=== PATIENT | male | born 1980 | race Caucasian/White ===

== ENCOUNTER 2022-03-15 11:44 | Outpatient (NON) | payer OTHER, SELFPAY ==
[2022-03-15 12:39] LABS: Alanine Aminotransferase 76 U/L (6-50); Albumin Level 3.6 g/dL (3.5-5.1); Alkaline Phosphatase 98 U/L (38-126); Anion Gap 11 mmol/L (8-16); Aspartate Amino Transferase 44 U/L (17-59); Bilirubin,Total 0.2 mg/dL (0.2-1.3); Blood Urea Nitrogen 11 mg/dL (9-20); CRP 0.7 mg/dL (<1.0); Calcium 8.3 mg/dL (8.4-10.2); Carbon Dioxide 27 mmol/L (22-30); Chloride 102 mmol/L (98-107); Estimated Glomerular Filt Rate > 60; Glucose 84 mg/dL (65-110); Potassium 3.9 mmol/L (3.4-5.0); Sodium 140 mmol/L (137-145)
[2022-03-15 12:41] LABS: Hematocrit 28.2 % (42.0-52.0); Mean Corpuscular HGB Conc 31.9 g/dl (32-36); Mean Corpuscular Hemoglobin 28.7 pg (26-34); Mean Corpuscular Volume 89.8 fl (80-100); Mean Platelet Volume 9.5 fl (7.4-10.4); Platelet Count Result 238 k/mm3 (150-375); Red Blood Count 3.14 M/mm3 (4.6-6.20); Red Cell Distribution Width 15.9 % (11.5-14.5); White Blood Count 4.4 K/mm3 (4.5-10.0)
[2022-03-15 13:09] LABS: Erythrocyte Sedimentation Rate 44 mm/hr (0-20)
== END 2022-03-15 11:45 | disposition home or self-care (01) ==
DX: L03.90 Cellulitis, unspecified (principal); A41.9 Sepsis, unspecified organism
CPT/HCPCS: 80053; 85027; 85652; 86140

== ENCOUNTER 2022-03-22 12:49 | Outpatient (NON) | payer OTHER, SELFPAY ==
[2022-03-22 13:13] LABS: Basophils Percent Auto 0.3 % (0.2-1.2); Eosinophils Absolute Auto 0.1 K/mm3 (0-0.3); Eosinophils Percent Auto 3.1 % (0-4.4); Hematocrit 33.7 % (42.0-52.0); Hemoglobin 10.5 g/dL (14.0-18.0); Immature Granulocyte Absolute 0.01 K/mm3 (0.00-0.031); Immature Granulocyte Percent A 0.3 % (0-0.5); Lymphocytes Absolute Auto 0.82 K/mm3 (0.9-3.2); Lymphocytes Percent Auto 28.6 % (18.3-44.2); Mean Corpuscular HGB Conc 31.2 g/dl (32-36); Mean Corpuscular Volume 89.9 fl (80-100); Mean Platelet Volume 9.8 fl (7.4-10.4); Monocytes Absolute Auto 0.4 K/mm3 (0.1-0.6); Monocytes Percent Auto 14.6 % (2.6-8.5); Neutrophils Absolute Auto 1.5 K/mm3 (1.3-6.7); Neutrophils Percent Auto 53.1 % (45.5-73.1); Platelet Count Result 219 k/mm3 (150-375); Red Blood Count 3.75 M/mm3 (4.6-6.20); Red Cell Distribution Width 14.7 % (11.5-14.5); White Blood Count 2.9 K/mm3 (4.5-10.0)
[2022-03-22 13:16] LABS: Alanine Aminotransferase 18 U/L (6-50); Albumin Level 3.8 g/dL (3.5-5.1); Alkaline Phosphatase 76 U/L (38-126); Anion Gap 8 mmol/L (8-16); Aspartate Amino Transferase 25 U/L (17-59); Bilirubin,Total 0.3 mg/dL (0.2-1.3); Blood Urea Nitrogen 10 mg/dL (9-20); CRP < 0.5 mg/dL (<1.0); Calcium 8.7 mg/dL (8.4-10.2); Carbon Dioxide 29 mmol/L (22-30); Chloride 101 mmol/L (98-107); Estimated Glomerular Filt Rate > 60; Glucose 85 mg/dL (65-110); Potassium 3.7 mmol/L (3.4-5.0); Sodium 138 mmol/L (137-145)
[2022-03-22 13:47] LABS: Erythrocyte Sedimentation Rate 16 mm/hr (0-20)
== END 2022-03-22 12:50 | disposition home or self-care (01) ==
LOC: HOME HLTH 12:59
DX: L03.90 Cellulitis, unspecified (principal); A41.9 Sepsis, unspecified organism
CPT/HCPCS: 80053; 85025; 85652; 86140

== ENCOUNTER 2022-03-25 13:44 | Outpatient (NON) | payer OTHER, SELFPAY ==
[2022-03-25 18:49] LABS: Eosinophils Absolute Auto 0.1 K/mm3 (0-0.3); Eosinophils Percent Auto 4.2 % (0-4.4); Hematocrit 37.3 % (42.0-52.0); Hemoglobin 11.7 g/dL (14.0-18.0); Lymphocytes Absolute Auto 0.71 K/mm3 (0.9-3.2); Lymphocytes Percent Auto 29.7 % (18.3-44.2); Mean Corpuscular HGB Conc 31.4 g/dl (32-36); Mean Corpuscular Hemoglobin 28.3 pg (26-34); Mean Corpuscular Volume 90.1 fl (80-100); Mean Platelet Volume 9.8 fl (7.4-10.4); Monocytes Absolute Auto 0.4 K/mm3 (0.1-0.6); Monocytes Percent Auto 15.9 % (2.6-8.5); Neutrophils Absolute Auto 1.2 K/mm3 (1.3-6.7); Neutrophils Percent Auto 50.2 % (45.5-73.1); Platelet Count Result 186 k/mm3 (150-375); Red Blood Count 4.14 M/mm3 (4.6-6.20); Red Cell Distribution Width 14.1 % (11.5-14.5); White Blood Count 2.4 K/mm3 (4.5-10.0)
== END 2022-03-25 13:45 | disposition home or self-care (01) ==
LOC: HOME HLTH 13:46
PROVIDERS: Visit Provider Orthopaedic Surgery
DX: L89.610 Pressure ulcer of right heel, unstageable (principal); Z45.2 Encounter for adjustment and management of vascular access device; Z79.2 Long term (current) use of antibiotics; T84.625A Infection and inflammatory reaction due to internal fixation device of left fibula, initial encounter
CPT/HCPCS: 85025

== ENCOUNTER 2022-04-12 12:27 | Outpatient (RCR) | payer OTHER, SELFPAY ==
[2022-03-30 10:29] LABS: Basophils Percent Auto 0.3 % (0.2-1.2); Eosinophils Absolute Auto 0.1 K/mm3 (0-0.3); Eosinophils Percent Auto 2.5 % (0-4.4); Immature Granulocyte Absolute 0.01 K/mm3 (0.00-0.031); Immature Granulocyte Percent A 0.3 % (0-0.5); Lymphocytes Percent Auto 49.1 % (18.3-44.2); Mean Corpuscular HGB Conc 32.5 g/dl (32-36); Mean Corpuscular Hemoglobin 27.7 pg (26-34); Mean Corpuscular Volume 85.1 fl (80-100); Mean Platelet Volume 10.2 fl (7.4-10.4); Monocytes Absolute Auto 0.3 K/mm3 (0.1-0.6); Monocytes Percent Auto 9.5 % (2.6-8.5); Neutrophils Absolute Auto 1.3 K/mm3 (1.3-6.7); Neutrophils Percent Auto 38.3 % (45.5-73.1); Platelet Count Result 188 k/mm3 (150-375); Red Cell Distribution Width 13.4 % (11.5-14.5); White Blood Count 3.3 K/mm3 (4.5-10.0)
[2022-03-30 10:46] LABS: Alanine Aminotransferase 42 U/L (6-50); Albumin Level 4.3 g/dL (3.5-5.1); Alkaline Phosphatase 90 U/L (38-126); Anion Gap 9 mmol/L (8-16); Aspartate Amino Transferase 42 U/L (17-59); Bilirubin,Total 0.4 mg/dL (0.2-1.3); Blood Urea Nitrogen 9 mg/dL (9-20); CRP < 0.5 mg/dL (<1.0); Carbon Dioxide 28 mmol/L (22-30); Chloride 102 mmol/L (98-107); Estimated Glomerular Filt Rate > 60; Glucose 85 mg/dL (65-110); Potassium 4.1 mmol/L (3.4-5.0); Sodium 139 mmol/L (137-145)
[2022-03-30 11:13] LABS: Erythrocyte Sedimentation Rate 12 mm/hr (0-20)
[2022-03-31 15:06] LABS: Vancomycin Trough 7.8 ug/mL (10.0-20.0)
[2022-04-05 12:47] LABS: Alanine Aminotransferase 28 U/L (6-50); Albumin Level 3.9 g/dL (3.5-5.1); Alkaline Phosphatase 89 U/L (38-126); Anion Gap 7 mmol/L (8-16); Aspartate Amino Transferase 31 U/L (17-59); Bilirubin,Total 0.2 mg/dL (0.2-1.3); Blood Urea Nitrogen 11 mg/dL (9-20); CRP < 0.5 mg/dL (<1.0); Calcium 8.5 mg/dL (8.4-10.2); Carbon Dioxide 26 mmol/L (22-30); Chloride 103 mmol/L (98-107); Estimated Glomerular Filt Rate > 60; Glucose 72 mg/dL (65-110); Potassium 3.9 mmol/L (3.4-5.0); Sodium 136 mmol/L (137-145)
[2022-04-05 12:49] LABS: Vancomycin Trough 10.2 ug/mL (10.0-20.0)
[2022-04-05 12:52] LABS: Basophils Percent Auto 0.5 % (0.2-1.2); Eosinophils Absolute Auto 0.1 K/mm3 (0-0.3); Eosinophils Percent Auto 3.2 % (0-4.4); Hematocrit 39.9 % (42.0-52.0); Hemoglobin 12.6 g/dL (14.0-18.0); Immature Granulocyte Absolute 0.01 K/mm3 (0.00-0.031); Immature Granulocyte Percent A 0.2 % (0-0.5); Lymphocytes Absolute Auto 1.26 K/mm3 (0.9-3.2); Mean Corpuscular HGB Conc 31.6 g/dl (32-36); Mean Corpuscular Hemoglobin 27.9 pg (26-34); Mean Corpuscular Volume 88.5 fl (80-100); Mean Platelet Volume 10.3 fl (7.4-10.4); Monocytes Absolute Auto 0.4 K/mm3 (0.1-0.6); Monocytes Percent Auto 10.3 % (2.6-8.5); Neutrophils Absolute Auto 2.2 K/mm3 (1.3-6.7); Neutrophils Percent Auto 54.8 % (45.5-73.1); Platelet Count Result 168 k/mm3 (150-375); Red Blood Count 4.51 M/mm3 (4.6-6.20); Red Cell Distribution Width 13.2 % (11.5-14.5); White Blood Count 4.1 K/mm3 (4.5-10.0)
[2022-04-05 13:41] LABS: Erythrocyte Sedimentation Rate 2 mm/hr (0-20)
[2022-04-12 13:59] LABS: Alanine Aminotransferase 26 U/L (6-50); Albumin Level 4.2 g/dL (3.5-5.1); Alkaline Phosphatase 81 U/L (38-126); Anion Gap 10 mmol/L (8-16); Aspartate Amino Transferase 31 U/L (17-59); Bilirubin,Total 0.3 mg/dL (0.2-1.3); Blood Urea Nitrogen 9 mg/dL (9-20); CRP < 0.5 mg/dL (<1.0); Carbon Dioxide 27 mmol/L (22-30); Chloride 102 mmol/L (98-107); Estimated Glomerular Filt Rate > 60; Glucose 112 mg/dL (65-110); Potassium 3.5 mmol/L (3.4-5.0); Sodium 139 mmol/L (137-145)
[2022-04-12 14:07] LABS: Basophils Percent Auto 0.4 % (0.2-1.2); Eosinophils Absolute Auto 0.1 K/mm3 (0-0.3); Eosinophils Percent Auto 2.8 % (0-4.4); Hematocrit 41.8 % (42.0-52.0); Hemoglobin 13.6 g/dL (14.0-18.0); Lymphocytes Absolute Auto 1.32 K/mm3 (0.9-3.2); Lymphocytes Percent Auto 28.1 % (18.3-44.2); Mean Corpuscular HGB Conc 32.5 g/dl (32-36); Mean Corpuscular Hemoglobin 27.6 pg (26-34); Mean Corpuscular Volume 84.8 fl (80-100); Monocytes Absolute Auto 0.4 K/mm3 (0.1-0.6); Monocytes Percent Auto 8.1 % (2.6-8.5); Neutrophils Absolute Auto 2.8 K/mm3 (1.3-6.7); Neutrophils Percent Auto 60.6 % (45.5-73.1); Platelet Count Result 184 k/mm3 (150-375); Red Blood Count 4.93 M/mm3 (4.6-6.20); Red Cell Distribution Width 13.1 % (11.5-14.5); White Blood Count 4.7 K/mm3 (4.5-10.0)
[2022-04-12 14:19] LABS: Vancomycin Trough 11.4 ug/mL (10.0-20.0)
[2022-04-12 14:37] LABS: Erythrocyte Sedimentation Rate 2 mm/hr (0-20)
== END 2022-06-28 23:59 | disposition home or self-care (01) ==
LOC: HOME HLTH 12:27
DX: L03.90 Cellulitis, unspecified (principal); A41.9 Sepsis, unspecified organism
CPT/HCPCS: 80053; 80202; 85025; 85652; 86140

== ENCOUNTER 2022-06-30 08:00 | Outpatient (NON) | payer OTHER, SELFPAY | END 2022-06-30 08:01 | disposition home or self-care (01) | LOC: ANHLAB 07-01 12:02 | PROVIDERS: Visit Provider Nurse Practitioner | DX: D22.5 Melanocytic nevi of trunk (principal) | CPT/HCPCS: 88305 ==

== ENCOUNTER 2022-08-29 09:00 | Outpatient (NON) | payer OTHER, SELFPAY | END 2022-08-29 09:01 | disposition home or self-care (01) | LOC: ANHLAB 08-31 11:43 | PROVIDERS: PCP Physician Assistant; Visit Provider Nurse Practitioner | DX: D22.5 Melanocytic nevi of trunk (principal) | CPT/HCPCS: 88305 ==

== ENCOUNTER 2022-09-14 01:47 | Day surgery (SDC) | payer OTHER, SELFPAY ==
--- NOTE | 2022-09-12 11:24 | PC.NURSE ---
patient verbalizes understanding of IRC procedure arrival date and times. No prep needed for this procedure. Medication reconciliation and allergy list updated in EMR.
[2022-09-14 11:35] VITALS: BP 134/68; PULSE 71; RESP 18; TEMP 36.5; O2SAT 100
--- NOTE | 2022-09-14 11:44 | PM.HPGS ---
History of Present Illness History of Present Illness Consent: Risks, benefits, and alternatives have been discussed and questions answered. Patient agrees to proceed with procedure. Chief complaint: hemorrhoids Narrative: Constantino Chavarria is a 41 year old male with hemorrhoids, here for [facility] Review of Systems Constitutional: Constitutional: Denies headache(s) and Denies weakness Eyes: Eyes: Denies blurry vision ENT: Reports Normal hearing present, Denies headache(s) and Denies neck pain Cardiovascular: Cardiovascular: Denies chest pain and Denies dyspnea Respiratory: Respiratory: Denies dyspnea Gastrointestinal: Gastrointestinal: Reports no additional gastrointestinal complaints Genitourinary: Genitourinary: Denies dysuria Musculoskeletal: Musculoskeletal: Denies neck pain Integumentary/Breasts: Skin/Breast: Denies dry skin Neurologic: Reports Normal hearing present, Denies headache(s) and Denies weakness Psychiatric: Psychiatric: Denies anxiety Endocrine: Endocrine: Denies change in body appearance Hematologic/Lymphatic: Hematologic/Lymphatic: Denies easy bleeding Allergic/Immunologic: Allergic/Immunologic: Denies urticaria PMFSH Past Medical History Medical History (Updated 08/11/22 @ 09:28 by Kit Franklin MD) Closed head injury Closed rib fracture Hemorrhoid Open right ankle fracture Right radial fracture Scalp laceration Traumatic fracture of ribs of left side with pneumothorax Social History Social History Smoking status: Never smoker Alcohol intake: current Alcohol use details: social Substance use: never Meds Home Medications and Allergies Home Medications Medication Instructions Recorded Confirmed Type docusate sodium 100 mg capsule 200 mg PO Q12HR #60 caps 11/25/21 09/14/22 Rx sennosides 8.6 mg tablet (Senokot) 17.2 mg PO DAILY #30 tabs 11/25/21 09/14/22 Rx Adults Multivitamin 1 tab-cap PO DAILY 09/12/22 09/14/22 History B Complex 1 tab-cap BYMOUTH DAILY 09/12/22 09/14/22 History Vitamin D3 1 tab-cap PO DAILY 09/12/22 09/14/22 History doxycycline hyclate 100 mg tablet 100 mg PO BID 09/12/22 09/14/22 History Allergies Allergy/AdvReac Type Severity Reaction Status Date / Time Sulfa (Sulfonamide Allergy Intermediate Hives Verified 09/14/22 11:43 Antibiotics) Exam Const: General: comfortable and no acute distress HENMT: Face/Nose/Sinus: Normal nares present Eyes: General: appearance normal, both eyes and all related structures Neck: Neck: no JVD Resp: Auscultation: clear to auscultation bilaterally Cardio: Rate: regular rate Rhythm: regular rhythm GI: Inspection: non-distended GI Palp: Yes Soft to palpation Skin: General skin exam: normal color Neuro: General: patient oriented x3 Speech: normal speech Extrem: General: normal to inspection Psych: Mental Status: mental status grossly normal Assessment and Plan Assessment and plan (1) Hemorrhoid: Code(s): K64.9 - Unspecified hemorrhoids Status: Acute Assessment and Plan: irc of internal hemorrhoids
--- NOTE | 2022-09-14 11:45 | W.PM.PROC2 ---
Procedure Note - Detailed Date of Procedure 09/14/22 Pre-op Diagnosis hemorrhoids Post-op Diagnosis Same Procedure Performed irc of internal hemorrhoids Surgeon Kit Franklin MD Anesthesia None Description of Procedure no anal fissure, no bleeding. Used anoscope and found small size internal hemorrhoids. Treated using irc probe at 1.5 sec x5
== END 2022-09-14 11:53 | disposition home or self-care (01) ==
PROVIDERS: PCP Physician Assistant; Visit Provider Internal Medicine Gastroenterology
PROC: (CPT 46930; principal; 2022-09-14 11:45)
DX: K64.8 Other hemorrhoids (principal)
CPT/HCPCS: 46930

== ENCOUNTER 2025-04-15 12:46 | Emergency (ER) | payer OTHER, SELFPAY ==
[2025-04-15 13:00] VITALS: BP 112/74; PULSE 76; RESP 16; TEMP 36.6; O2SAT 99
[2025-04-15 13:17] LABS: EDCOVIDSCREEN Negative (Negative); EDINFLUASCREEN Negative (Negative); EDINFLUBSCREEN Negative (Negative)
--- OUTSIDE RECORDS SUMMARY | 2025-04-15 13:28 | XMS_ITS | Clinical Summary ---
Author Organization [facility] Address [address] [place] [address] Care Team Providers Care Automobile Sales Representative Name Role Phone Florecita Mchugh Primary Care Pr ovider Allergies Active Allergy Reactions Criticality Noted Date Comments Sulfa (Sulfonamide Antibiotics) Hives Medium 03/15 Medications varenicline (CHANTIX ZOILA) 0.5 mg (11)- 1 mg (42) tablet Take by mouth 2 (two) times a day. Take 0.5 mg one daily on days 1-2 and 0.5 mg twice daily on days 4-7. Then 1 mg twice daily for a total of 12 weeks. Active prednisoLONE ODT (ORAPRED ODT) 10 mg disintegrating tablet Take by mouth daily. Active cyclobenzaprine (FLEXERIL) 10 mg tablet Take 1 tablet (10 mg total) by mouth daily Active traMADol (ULTRAM) 50 mg tablet Take 50 mg by mouth every 6 (six) hours as needed for pain. Active clindamycin (CLEOCIN T) 1 % lotion Apply topically as needed. Active azelastine (ASTELIN) 137 mcg (0.1 %) nasal spray Administer 1 spray into affected nostril(s) 2 times daily Active albuterol HFA (PROVENTIL HFA,VENTOLIN HFA,PROAIR HFA) 90 mcg/actuation inhalerIndications :Viral upper respiratory tract infection Inhale 2 puffs every 6 (six) hours as needed for wheezing or shortness of breath 1 Inhaler 05/23/19 20 Active Additional Information Patient not taking.Reported on 06/24/2019 benzonatate (TESSALON) 200 mg capsuleIndications :Viral upper respiratory tract infection Take 1 capsule (200 mg total) by mouth 3 (three) times a day as needed for cough 30 capsule 05/23/19 20 Active Additional Information Patient not taking.Reported on 06/24/2019 fluticasone propionate (FLONASE) 50 mcg/actuation nasal spray every 12 hours Act jerry tadalafiL (CIALIS) 20 mg tablet Take 1 tablet (20 mg total) by mouth daily as needed for erectile dysfunction 12 tablet 2 04/03/20 20 Active acetaminophen (TYLENOL) 500 mg tablet Take 2 tablets (1,000 mg total) by mouth every 8 (eight) hours 07/23/19 23 Active amitriptyline (ELAVIL) 25 mg tablet Take 1 tablet (25 mg total) by mouth nightly 03/21/20 22 Active montelukast (SINGULAIR) 10 mg tablet daily Active senna-docusate (PERICOLACE) 8.6-50 mg Take 1 tablet by mouth 2 (two) times a day 03/21/20 22 Active Active Problems No known active problems Surgical History Surgery Date Site/Laterality Comments TONSILLECTOMY/ADENOIDECTOMY 05/15/1992 - 05/14/1993 OTHER SURGICAL HISTORY PORT PLACEMENT CHEST >5 YEARS 02/24/2022 N/A Medical History Medical History Date Comments Varicella Urinary tract infection Family History Medical History Relation Name Comments Arthritis Father Cancer Father Arthritis Mother Diabetes Mother Relation Name Status Comments Father Mother Alive Social History Tobacco Use Types Packs/Day Years Used Date Smoking Tobacco: Former Smokeless Tobacco: Never Tobacco Cessation:Counseling Given: Not Answered Comments:quit 4 weeks ago Alcohol Use Standard Drinks/Week Comments Yes 0 (1 standard drink = 0.6 oz pur e alcohol) Personal Safety Answer Date Recorded Getting School Help Needed Not on file 04/27 Sex and Gender Information Value Date Recorded Sex Assigned at Not on file Legal Sex Male 11:36 PM [employer] Gender Identity Not on file Sexual Orientation Not on file 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 Not on file Not on file Last Filed Vital Signs Vital Sign Reading Time Taken Comments Blood Pressure 120/79 04/27/2023 6:55 PM [employer] Pulse 108 04/27/2023 6:55 PM SERVER CASHIER Temperature 36.8 C (98.3 F) 04/27/2023 6:55 PM SERVER CASHIER Respiratory Rate 16 04/27/2023 6:55 PM SERVER CASHIER Oxygen Saturation 100% 04/27/2023 6:55 PM SERVER CASHIER Inhaled Oxygen Concentration - - Weight 88.3 kg (194 lb 9.6 oz) 04/27/2023 6:55 P M SERVER CASHIER Height 182.9 cm (6' 0.01) 04/27/2023 6:55 PM CS T Body Mass Index 26.39 04/27/2023 6:55 PM SERVER CASHIER Plan of Treatment Health Maintenance Due Date Last Done Comments Depression Screening 1982 Hepatitis C Screening 1982 Hepatitis B Screening 2000 Regular Well Visit/Exam 18-64 2000 HPV Vaccines (1 - 3-dose SCDM series) 2009 Covid-19 Vaccine ( - season) 2025 05/19/2021, 04/28/2021 Influenza Vaccine (#1) 2025 2, 03/21/2022, 03/20/2020, Additional history exists DTaP/Tdap/Td Vaccine (3 - Td or Tdap) 11/14/2031 11/13/2021, 09/14/2018 Pneumococcal vaccine <65 Aged Out No longer eligible based on patient's age to complete this topic Insurance [facility] Address: [facility] [address] [place] [address] [facility] Address: [address] [address] [place] [address] [address] [place] [id number] [facility] Address: [address] [address] [place] [address] [address] [place] [place] [place] [id number] [facility] Address: [address] [address] [place] [address] Care Teams Automobile Sales Representative Relationship Specialty Start Date End Date Florecita Mchugh PA PCP - General Physician Psychotherapist Social Worker 04/27/23
--- OUTSIDE RECORDS SUMMARY | 2025-04-15 13:28 | XMS_ITS | Clinical Summary ---
Author Organization [facility] Address [address] [place] [address] Care Team Providers Care Hair Rooting Machine Operator Name Role Phone Bobby Ortiz MD Primary Care Provider Social History Tobacco Use Types Packs/Day Years Used Date Smoking Tobacco: Never Assessed Sex and Gender Information Value Date Recorded Sex Assigned at Not on file Legal Sex Male 5:57 AM [facility] Gender Identity Not on file Sexual Orientation Not on file Plan of Treatment Health Maintenance Due Date Last Done Comments DTAP/TDAP/TD VACCINES (1 - Tdap) 2001 HEPATITIS B VACCINES (1 of 3 - 19+ 3-dose series) 09/12 HPV VACCINES (1 - 3-dose SCDM series) 2009 INFLUENZA VACCINE (#1) 2024 Care Teams Hair Rooting Machine Operator Relationship Specialty Start Date End Date Bobby Ortiz MD PCP - General Otolaryngology 07/26/12
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
--- OUTSIDE RECORDS SUMMARY | 2025-04-15 13:31 | XMS_ITS | Encounter Summary ---
Author Organization [facility] Health Address [address] [place] [address] Care Team Providers Care Staff Auditor Name Role Phone Florecita Sanchez Primary Care Pr ovider Encounter Details Date Type Department Care Team (Late st Contact Info) Description 08/02/2022 Telephone [facility] [address] [place] [address] Lidia Mckeon MD [address] [place] [address] Social History Tobacco Use Types Packs/Day Years Used Date Smoking Tobacco: Former Cigarettes 0.3 10 Smokeless Tobacco: Never Alcohol Use Standard Drinks/Week Comments Not Currently 0 (1 standard drink = 0.6 oz pur e alcohol) AUDIT-C Answer Date Recorded Q1: How often do you have a drink containing alc ohol? Never 02/16/2022 Average Number of Drinks Not on file 022 Frequency of Binge Drinking Not on file 09/2021 PHQ-2 Answer Date Recorded PHQ2 TOTAL SCORE 0 06/01/2022 Hunger Vital Sign Answer Date Recorded Within [...] on file Legal Sex Male 4:23 AM COMPLIANCE ENG[employer] Gender Identity Not on file Sexual Orientation Not on file documented as of this encounter Functional Status * Is person deaf or have serious hearing difficulty? Answer Date of Assessment Author No 02/17/2022 2:36 PM CDT Jada Schmitt RN * Is person blind or have serious difficulty seeing? Answer Date of Assessment Author No 02/17/2022 2:36 PM CDT Jada Schmitt RN * Does person have serious difficulty walking/climbing stairs? Answer Date of Assessment Author Yes 02/17/2022 2:36 PM CDT Jada Schmitt RN * Does person have difficulty dressing/bathing? Answer Date of Assessment Author Yes 02/17/2022 2:36 PM CDT Jada Schmitt RN * Does person have difficulty doing errands alone? Answer Date of Assessment Author Yes 02/17/2022 2:36 PM CDT Jada Schmitt RN documented as of this encounter Mental Status * Does person have difficulty concentrating/remembering/making decisions? Answer Entry Date Author No 02/17/2022 2:36 PM CDT Jada Schmitt RN documented in this encounter Miscellaneous Notes * Telephone Encounter - Viridiana Owusu - 08/02/2022 3:35 PM CDT Current Provider name: Dr. Lidia Mckeon Reason for call: Mrs. Oc Chavarria called stating Mr. Constantino Chavarria is running temperature of 101,he is vomiting and he is really cold. Please give her a call GRECIA. His appt w you is 08/17/2022 Patient Call Back number: [phone] documented in this encounter Plan of Treatment Not on file documented as of this encounter Visit Diagnoses Not on filedocumented in this encounter Additional Health Concerns Infection Onset Date Last Indicated Resolved Time COVID-19 Under Investigation 08/02/2022 08/02/2022 08/02/2022 8:16 PM CDT documented as of this encounter Care Teams Staff Auditor Relationship Specialty Start Date End Date Florecita Sanchez PA [address] [place] [address] PCP - General Physician Health Information Administrator 02/16/22 documented as of this encounter
--- OUTSIDE RECORDS SUMMARY | 2025-04-15 13:31 | XMS_ITS | Encounter Summary ---
Author Organization [facility] Address [address] [place] [address] Care Team Providers Care Car And Yard Supervisor Name Role Phone Florecita Sanchez Primary Care Pr ovider Reason for Visit * Reason Onset Date Comments Appointment 03/30/2022 Encounter Details Date Type Department Care Team (Late st Contact Info) Description 03/30/2022 Telephone [facility] [address] [place] [address] [facility] Appointment Social History Tobacco Use Types Packs/Day Years Used Date Smoking Tobacco: Former Cigarettes 0.3 10 Smokeless Tobacco: Never Alcohol Use Standard Drinks/Week Comments Not Currently 0 (1 standard drink = 0.6 oz pur e alcohol) former occasional drinker AUDIT-C Answer Date Recorded Q1: How often do you have a drink containing alc ohol? Never 02/16/2022 Average Number of Drinks Not on file 022 Frequency of Binge Drinking Not on file 09/2021 PHQ-2 Answer Date Recorded PHQ2 TOTAL SCORE 0 03/21/2022 Hunger Vital Sign Answer Date Recorded Within [...] on file Legal Sex Male 4:23 AM BOOTH CLEANER Gender Identity Not on file Sexual Orientation [...] encounter Miscellaneous Notes * Telephone Encounter - Aviva Reno - 03/30/2022 11:58 AM CST Spoke to patient regarding his canceled appointment on 05/24/22. He is requesting a sooner appointment and has questions regarding his medications. Please contact this patient. H CLEANER documented in this encounter Plan of Treatment Not on file documented as of this encounter Visit Diagnoses Not on filedocumented in this encounter Additional Health Concerns Infection Onset Date Last Indicated Resolved Time COVID-19 Under Investigation 08/02/2022 08/02/2022 08/02/2022 8:16 PM CDT documented as of this encounter Care Teams Car And Yard Supervisor Relationship Specialty Start Date End Date Florecita Sanchez PA [address] [place] [id number] PCP - General Physician Masonry Inspector 02/16/22 documented as of this encounter
--- OUTSIDE RECORDS SUMMARY | 2025-04-15 13:31 | XMS_ITS | Encounter Summary ---
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 Lidia Mckeon Reason for call: Mr. Constantino Chavarria called in re: getting ALL of his appts in [facility] the same day as ALL of his appts w Dr. Weaver in [facility]. Dr. Mckeon has no avails on 09/19/2022 the same day as his appt in [facility], her next avail is 10/07/2022. His appt is today at 4PM and he is just calling. Please advise. Patient Call Back number: [phone] documented in this encounter Plan of Treatment Not on file documented as of this encounter Visit Diagnoses Not on filedocumented in this encounter Care Teams Quality Improvement Analyst Relationship Specialty Start Date End Date Florecita Sanchez PA [address] [place] [address] PCP - General Physician Padding Machine Operator 02/16/22 documented as of this encounter
--- NOTE | 2025-04-15 13:55 | ED_ITS ---
HPI - General Adult General Chief complaint: Upper Respiratory Infection Stated complaint: Cough/Nasal Congestion/Body Aches Source: patient Mode of arrival: ambulatory Limitations: no limitations History of Present Illness HPI narrative: Patient presents for evaluation of a cough for the last week. He also reports sinus congestion and clear rhinorrhea. No fever, chills, nausea, vomiting. He does report some body aches. He smokes half a pack per day. He has been taking Mucinex for symptoms. This is a now has a cough and is being evaluated for that at the same time as patient. He is currently on keflex for an infection at the site of his previous ankle surgery. Related Data Home Medications ?Medication ?Instructions ?Recorded ?Confirmed ?Last Taken ?Type cephalexin 500 mg capsule mg 04/15/25 Unknown History Allergies Allergy/AdvReac Type Severity Reaction Status Date / Time Sulfa (Sulfonamide Allergy Intermediate Hives Verified 04/15/25 13:00 Antibiotics) cat dander Allergy Unknown Unknown Verified 04/15/25 13:00 Review of Systems Review of Systems: CONSTITUTIONAL: Denies fever, chills, or sweats. EYES: Denies visual changes, redness, or discharge. ENT: Reports sinus congestion and clear rhinorrhea. Denies sore throat, or otalgia. CARDIOVASCULAR: Denies chest pain, palpitations, or edema. RESPIRATORY: Reports cough. Denies shortness of breath. GASTROINTESTINAL: Denies abdominal pain, nausea, vomiting, or diarrhea. GENITOURINARY: Denies dysuria or hematuria. SKIN: Denies rash or itching. MUSCULOSKELETAL: reports generalized body ache NEUROLOGIC: Denies headache, numbness, dizziness, or weakness. PSYCHIATRIC: Denies anxiety or depression. [facility] Past Medical History Medical History Hemorrhoid Traumatic fracture of ribs of left side with pneumothorax Closed rib fracture Closed head injury Scalp laceration Right radial fracture Open right ankle fracture Surgical History Surgical History History of ankle surgery Family History Family History Mother Family history non-contributory Social History Social History (Reviewed 04/15/25 @ 13:58 by Pete Dos Santos, BRACELET AND BROOCH MAKER, BIOMASS FACILITATOR) Smoking packs per day: 0.5 Smoking cigarettes per day: 10.0 Smoking status: Current every day smoker Tobacco type: cigarettes Alcohol intake: current Alcohol use details: social Substance use: never Living arrangements: with family Gender identity (if verbalized by the patient): Male Sexual Orientation (if Verbalized by the Patient): Straight or Heterosexual Spiritual care concerns: No Exam Narrative: GENERAL: Well-appearing, well-nourished, and in no acute distress. HEAD: Normocephalic, atraumatic. EYES: PERRLA and EOMI. ENT: Nares clear, no rhinorrhea or epistaxis. Mucous membranes moist. Oropharynx without tonsillar hypertrophy exudate or other lesions. Bilateral TMs pearly isaac nonbulging NECK: Supple. No adenopathy or masses. No carotid bruits or JVD CHEST: occasional cough present. Clear to auscultation. No respiratory distress. No wheezes rales or rhonchi HEART: Regular rate and rhythm. No murmur heard. Normal peripheral pulses. ABDOMEN: Soft, nontender, nondistended, normal active bowel sounds. EXTREMITIES: Normal range of motion. No edema. SKIN: Warm, dry, no rash. NEURO: No focal deficits. Alert and oriented x3. PSYCH: Normal mood and affect. Course Course Emergency Course: This is a 44-year-old male who presented for evaluation of sick symptoms. Influenza and COVID were both negative. He has no adventitious lung sounds warranting chest x-ray. Exam consistent with viral illness. Discharge with Tessalon and prednisone. Follow up with primary provider. Advised on smoking cessation. Go to the ER for worsening symptoms. Patient in agreement with plan of care. Level of Care: Express Care Visit Vital Signs Vital signs: Vital Signs Temperature 36.6 C 04/15/25 13:00 Pulse Rate 76 04/15/25 13:00 Respiratory Rate 16 04/15/25 13:00 Blood Pressure 112/74 04/15/25 13:00 Pulse Oximetry 99 04/15/25 13:00 Oxygen Delivery Room Air 04/15/25 13:00 Temperature 36.6 C 04/15/25 13:00 Pulse Rate 76 04/15/25 13:00 Respiratory Rate 16 04/15/25 13:00 Blood Pressure 112/74 04/15/25 13:00 Pulse Oximetry 99 04/15/25 13:00 Oxygen Delivery Room Air 04/15/25 13:[address] [facility] Differential Diagnosis Differential Diagnosis: Flu versus COVID versus other acute viral illness versus pneumonia Lab Data Labs: Lab Results 04/15/25 Range/Units 13:15 POC Influenza A Ag Negative (Negative) POC Influenza B Ag Negative (Negative) POC SARS CoV-2 Ag Negative (Negative) Discharge Plan Discharge Clinical Impression: Viral URI Patient Disposition: Home Condition: Stable Instructions: Antibiotic Form, Upper Respiratory Infection (ED), Viral Syndrome (ED) Patient Language: Bulgarian Prescriptions: New prednisone 50 mg tablet 50 mg PO DAILY Qty: 5 0RF benzonatate 200 mg capsule 200 mg PO TID PRN (Reason: cough) Qty: 30 0RF No Action cephalexin 500 mg capsule Follow-up/Referrals: Lolita,ASHU Bernabe [Primary Care Provider, Unknown] Time of Disposition: 13:46
== END 2025-04-15 13:51 | disposition home or self-care (01) ==
PROVIDERS: Emergency Provider Nurse Practitioner; PCP Physician Assistant
DX: J06.9 Acute upper respiratory infection, unspecified (principal); Z20.822 Contact with and (suspected) exposure to COVID-19; F17.210 Nicotine dependence, cigarettes, uncomplicated
CPT/HCPCS: 87426; 87804; 99213; G0463